=== PATIENT | female | born 1985 | race Two or more races ===

== ENCOUNTER 2023-10-17 11:22 | Inpatient (IN) | payer OTHER ==
[~2023-10-17] VITALS: Ht 160 cm; Wt 71.7 kg
[2023-10-17] MEDS ORDERED: AMPICILLIN SODIUM 2,000 MG VIAL ONE (12:18)
[2023-10-17 12:31] LABS: HEMOGLOBIN 12.6 g/dL (12.0-15.00); MEAN CELL VOLUME 92.7 fL (80.00-100.00); MEAN CORPUSCULAR HEMOGLOBIN 32.5 pg (27.00-32.0); PLATELET COUNT 152 K/uL (150-450); RED BLOOD COUNT 3.88 M/uL (4.00-6.00); RED CELL DISTRIBUTION WIDTH 13.8 % (11.5-14.5)
[2023-10-17] MEDS ORDERED: PRENATAL + DHA1 EAC1 PO (12:32)
[2023-10-17] MEDS ORDERED: CHILDREN'S ASPI81 MG PO (12:32)
[2023-10-17 12:36] LABS: URINE APPEARANCE Clear; URINE BILIRRUBIN Negative (NEGATIVE); URINE BLOOD Negative; URINE COLOR Yellow; URINE GLUCOSE Negative (NEGATIVE); URINE LEUKOCYTE Moderate; URINE NITRATE Negative; URINE PROTEIN Negative (NEGATIVE); URINE UROBILINOGEN 0.2 E.U./dl
[2023-10-17 12:37] LABS: URINE BACTERIA 556.7 uL (0.0-1933); URINE EPITHELIAL CELLS 21.6 uL (0.0-38.8); URINE RBC 5.4 uL (0.0-20.8); URINE WBC 46.3 uL (0.0-23.2)
[2023-10-17] MEDS ORDERED: AMPICILLIN SODIUM 2,000 MG VIAL IV STA (12:47)
[2023-10-17 12:54] LABS: INR < 0.93; PARTIAL THROMBOPLASTIN TIME 27.5 SECONDS (22.0-34.0); PROTHROMBIN TIME 9.6 SECONDS (9.0-11.5)
[2023-10-17] MEDS ORDERED: RINGERS SOLUTION,LACTATED 1,000 ML IV SCH (13:00)
[2023-10-17 13:39] LABS: ALBUMIN 2.7 gm/dL (3.4-5.0); BILIRUBIN TOTAL 0.57 mg/dL (0.3-1.2); CALCIUM 8.7 mg/dL (8.5-10.1); CREATININE SERUM 0.66 mg/dL (0.55-1.02); GFR 101.91; GLOBULINA 3.5 G/DL (2.4-3.5); POTASSIUM 3.86 mEq/L (3.5-5.1); TOTAL PROTEIN 6.2 gm/dL (6.4-8.2)
[2023-10-17] MEDS ORDERED: OXYTOCIN 20 UNITS/500ML RL PIGGYBAG IV ONE (13:59)
[2023-10-17] MEDS ORDERED: OXYTOCIN 500 ML IV SCH (14:15)
[2023-10-17] MEDS ORDERED: AMPICILLIN SODIUM 1,000 MG VIAL IV SCH (16:00)
[2023-10-17] MEDS ORDERED: MISOPROSTOL 25 MCG TABLET ONE (16:41)
[2023-10-17] MEDS ORDERED: MISOPROSTOL 25 MCG TABLET VAG ONE (18:00)
[2023-10-18] MEDS ORDERED: MISOPROSTOL 25 MCG TABLET VAG ONE (12:15)
[2023-10-18] MEDS ORDERED: OXYTOCIN 10 UNITS/ML VIAL IV ONE (19:30)
[2023-10-18] MEDS ORDERED: ERYTHROMYCIN BASE 1 GM TUBE OP ONE (19:30)
[2023-10-18] MEDS ORDERED: IBUprofen 400 MG TABLET PO PRN (20:45)
[2023-10-18] MEDS ORDERED: MEPERIDINE HCL/PF 50 MG/ML VIAL IM PRN (20:45)
[2023-10-18] MEDS ORDERED: OXYTOCIN 1,000 ML IV SCH (20:45)
[2023-10-18] MEDS ORDERED: METHYLERGONOVINE MALEATE 0.2 MG/ML AMPUL IM ONE (21:15)
[2023-10-18 23:56] LABS: ABG PO2 29.9 mmHg (80-100); ABG pCO2 44.7 mmHg (35-45)
[2023-10-18 23:57] LABS: BASE EXCESS -4.1 mmol/l; BICARBONATE 22.2 mmol/l (23-25); SaO2 49.4 %; Tco2 23.5 mmol/l; allen test SATISFACTORY; o2 21 %; puncture site RADIAL RIGHT
[2023-10-19] MEDS ORDERED: OxyCODONE HCL/APAP UD (PERCOCET) PO PRN (12:00)
[2023-10-19 13:46] LABS: HEMATOCRIT 33.7 % (36.0-45.00); HEMOGLOBIN 11.8 g/dL (12.0-15.00); MEAN CELL VOLUME 92.6 fL (80.00-100.00); MEAN CORPUSCULAR HEMOGLOBIN 32.4 pg (27.00-32.0); PLATELET COUNT 139 K/uL (150-450); RED BLOOD COUNT 3.63 M/uL (4.00-6.00); RED CELL DISTRIBUTION WIDTH 13.8 % (11.5-14.5)
[2023-10-20] MEDS ORDERED: ONDANSETRON 4 MG TAB.RAPDIS PO PRN (18:00)
[2023-10-21 03:21] LABS: URINE APPEARANCE Clear; URINE BILIRRUBIN Negative (NEGATIVE); URINE BLOOD Negative; URINE COLOR Yellow; URINE GLUCOSE Negative (NEGATIVE); URINE LEUKOCYTE Negative; URINE NITRATE Negative; URINE PROTEIN Negative (NEGATIVE)
[2023-10-21 03:25] LABS: URINE BACTERIA 11.3 uL (0.0-1933); URINE EPITHELIAL CELLS 6.3 uL (0.0-38.8); URINE WBC 1.8 uL (0.0-23.2)
== END 2023-10-21 12:14 | disposition home or self-care (01) | DRG 787 ==
LOC: LDR 11:22 → OB/GYN 11:22 → LDR 11:28 → OB/GYN 13:41
PROVIDERS: Obstetrics & Gynecology; ADMIT Obstetrics & Gynecology Gynecology; ATTEND Obstetrics & Gynecology Gynecology
PROC: 4A1HXCZ Monitoring of Products of Conception, Cardiac Rate, External Approach (ICD-10-PCS; 2023-10-17)
PROC: BY4CZZZ Ultrasonography of Second Trimester, Single Fetus (ICD-10-PCS; 2023-10-18)
PROC: 10D00Z1 Extraction of Products of Conception, Low, Open Approach (ICD-10-PCS; principal; 2023-10-19)
PROC: 0UB90ZZ Excision of Uterus, Open Approach (ICD-10-PCS; 2023-10-19)
DX: O64.0XX0 Obstructed labor due to incomplete rotation of fetal head, not applicable or unspecified (principal); O41.03X0 Oligohydramnios, third trimester, not applicable or unspecified; O28.3 Abnormal ultrasonic finding on antenatal screening of mother; O26.843 Uterine size-date discrepancy, third trimester; O36.8130 Decreased fetal movements, third trimester, not applicable or unspecified; Z37.0 Single live birth; Z3A.38 38 weeks gestation of pregnancy; Z20.822 Contact with and (suspected) exposure to COVID-19; O34.13 Maternal care for benign tumor of corpus uteri, third trimester; D25.2 Subserosal leiomyoma of uterus